=== PATIENT | male | born 1970 | race Caucasian/White ===

== ENCOUNTER 2018-03-10 19:00 | Emergency (ER) | payer OTHER ==
[2018-03-10 19:06] VITALS: BP 164/113; PULSE 95; RESP 16; TEMP 97.9
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
== END 2018-03-10 20:41 | disposition home or self-care (01) ==
LOC: EC 19:00
DX: S09.90XA Unspecified injury of head, initial encounter (principal); Z88.6 Allergy status to analgesic agent; Y04.0XXA Assault by unarmed brawl or fight, initial encounter; Y92.89 Other specified places as the place of occurrence of the external cause; Y99.0 Civilian activity done for income or pay
CPT/HCPCS: 70450; 99284

== ENCOUNTER 2018-08-27 21:44 | Emergency (ER) | payer OTHER ==
[2018-08-27 22:21] VITALS: BP 169/95; PULSE 98; RESP 18; TEMP 98
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
== END 2018-08-27 22:45 | disposition home or self-care (01) ==
LOC: EC 21:44
DX: Z77.21 Contact with and (suspected) exposure to potentially hazardous body fluids (principal); Z53.29 Procedure and treatment not carried out because of patient's decision for other reasons; Z88.6 Allergy status to analgesic agent
CPT/HCPCS: 99283

== ENCOUNTER 2021-02-17 23:55 | Emergency (ER) | payer OTHER ==
[2021-02-18 01:06] VITALS: BP 126/84; PULSE 71; RESP 15; TEMP 98.4
== END 2021-02-18 00:26 | disposition home or self-care (01) ==
LOC: EC 23:55
DX: Z02.89 Encounter for other administrative examinations (principal)
CPT/HCPCS: 99499

== ENCOUNTER 2022-08-08 18:47 | Emergency (ER) | payer OTHER ==
[2022-08-08] MEDS ORDERED: DIPH,PERTUS(ACELL)TETVAC-LF 0.5 ML VIAL IM ONE (18:50)
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
[2022-08-08 18:59] VITALS: BP 122/80; PULSE 72; RESP 18; TEMP 98.2
== END 2022-08-08 19:10 | disposition home or self-care (01) ==
LOC: EC 18:47
DX: S81.852A Open bite, left lower leg, initial encounter (principal); Z88.6 Allergy status to analgesic agent; Z23 Encounter for immunization; W54.0XXA Bitten by dog, initial encounter
CPT/HCPCS: 90471; 90715; 99283